=== PATIENT | male | born 1980 ===

== ENCOUNTER 2023-03-15 12:30 | Inpatient (IN) | payer OTHER ==
[~2023-03-15] VITALS: Ht 188 cm; Wt 80.7 kg
[2023-03-15] MEDS ORDERED: TOPROL XL25 M1 PO (15:37)
[2023-03-20] MEDS ORDERED: NORVASC2.5 MG (15:24)
== END 2023-03-22 10:15 | disposition home or self-care (01) | DRG 330 ==
LOC: O/R 03-20 05:50 → SURH 03-20 07:00 → SURG 03-20 11:20 → SURH 03-20 12:30 → SURG 03-22 10:15
PROVIDERS: ADMIT Colon & Rectal Surgery; ATTEND Colon & Rectal Surgery
PROC: 0DBP4ZZ Excision of Rectum, Percutaneous Endoscopic Approach (ICD-10-PCS; 2023-03-20)
PROC: 0DJD8ZZ Inspection of Lower Intestinal Tract, Via Natural or Artificial Opening Endoscopic (ICD-10-PCS; 2023-03-20)
PROC: 0DTN4ZZ Resection of Sigmoid Colon, Percutaneous Endoscopic Approach (ICD-10-PCS; principal; 2023-03-20 07:00)
DX: K57.32 Diverticulitis of large intestine without perforation or abscess without bleeding (principal); K92.1 Melena; I11.9 Hypertensive heart disease without heart failure